=== PATIENT | female | born 1945 | race Caucasian/White ===

== ENCOUNTER 2022-11-21 15:05 | Emergency (ER) | payer OTHER ==
[~2022-11-21] VITALS: Ht 154.9 cm; Wt 68.9 kg
[2022-11-21 15:11] VITALS: BP_SYST 149
[2022-11-21] MEDS ORDERED: KETOROLAC TROMETHAMINE 30 MG VIAL IM ONE (15:15)
--- NOTE | 2022-11-21 15:53 | NUR ---
In ER bed 5 C/O Leg pain Awaiting Xray results
[2022-11-21 17:09] VITALS: BP_SYST 132
[2022-11-21] MEDS ORDERED: DICL20GE TP (17:33)
== END 2022-11-21 17:09 | disposition home or self-care (01) ==
LOC: SED 15:05
DX: S70.02XA Contusion of left hip, initial encounter (principal); Z88.5 Allergy status to narcotic agent; Z88.6 Allergy status to analgesic agent; Z79.899 Other long term (current) drug therapy; W01.0XXA Fall on same level from slipping, tripping and stumbling without subsequent striking against object, initial encounter; Y93.89 Activity, other specified; Y92.89 Other specified places as the place of occurrence of the external cause; Y99.8 Other external cause status
CPT/HCPCS: 99284; 73502; 73564; 96372; 72170; J1885